=== PATIENT | female | born 1990 | race Caucasian/White ===

== ENCOUNTER 2020-09-04 11:18 | Inpatient (IN) | payer OTHER, SELFPAY ==
[~2020-09-04] VITALS: Ht 165.1 cm; Wt 79.4 kg
[2020-09-04] MEDS ORDERED: CITRIC ACID/SODIUM CITRATE 30 ML UDC PO ONE (11:35)
[2020-09-04] MEDS ORDERED: METOCLOPRAMIDE 10 MG/2 ML INJ VIAL IVP ONE (11:35)
[2020-09-04 12:19] LABS: BASOPHILS # (AUTO) 0.1 K/uL (0.00-0.22); BASOPHILS % (AUTO) 0.5 % (0.0-2.0); EOSINOPHILS # (AUTO) 0.2 K/uL (0-0.4); EOSINOPHILS % (AUTO) 1.3 % (0.0-4.0); HEMATOCRIT 34.4 % (36-48); HEMOGLOBIN 11.4 g/dL (12.0-16.0); LYMPHOCYTES # (AUTO) 1.7 K/uL (2.5-16.5); LYMPHOCYTES % (AUTO) 12.5 % (20.5-51.1); MEAN CORPUSCULAR HEMOGLOBIN 29 pg (27-31); MEAN CORPUSCULAR HGB CONC 33 g/dL (33-37); MEAN CORPUSCULAR VOLUME 88.1 fL (80-94); MONOCYTES # (AUTO) 1.1 K/uL (0.8-1.0); NEUTROPHILS # (AUTO) 10.3 K/uL (1.8-7.7); NEUTROPHILS % (AUTO) 77.7 % (42.2-75.2); PLATELET COUNT (AUTO) 318 K/uL (140-450); RED CELL DISTRIBUTION WIDTH 13.6 % (11.6-13.7); WHITE BLOOD COUNT (AUTO) 13.3 K/uL (4.8-10.8)
[2020-09-04 12:28] LABS: APPEARANCE,URINE CLOUDY (CLEAR); BILIRUBIN,URINE NEGATIVE (NEGATIVE); BLOOD, URINE NEGATIVE (NEGATIVE); COLOR,URINE YELLOW (YELLOW); LEUKOCYTE ESTERASE ,URINE 2+ (NEGATIVE); NITRITE, URINE NEGATIVE (NEGATIVE); UGLUCOSE NEGATIVE (NEGATIVE)
[2020-09-04 12:32] LABS: PROTHROMBIN TIME 9.3 secs (10.8-13.4)
[2020-09-04 13:13] LABS: ALBUMIN 2.6 g/dL (3.4-5.0); ANION GAP 14.8 (8-16); CARBON DIOXIDE 21.2 mmol/L (21-32); CREATININE 0.5 mg/dL (0.6-1.3); TOTAL BILIRUBIN 0.2 mg/dL (0.0-1.0)
[2020-09-04 13:22] LABS: RBC,URINE 0-5 /HPF (0-5); WBC,URINE 16-25 (MOD) /HPF (0-5)
[2020-09-04] MEDS: LACTATED RINGERS 1,000 ML IV SCH ×2 (13:30→17:20)
[2020-09-04 14:15] VITALS: BP 131/91
[2020-09-04 20:48] LABS: URINE TOTAL PROTEIN 36.1 mg/dL (0-12)
[2020-09-05] MEDS: LACTATED RINGERS 1,000 ML IV SCH (02:15)
[2020-09-05] MEDS ORDERED: METHYLERGONOVINE 0.2 MG/ML AMP IM PRN ×2 (03:30→06:45)
[2020-09-05] MEDS ORDERED: bisacodyL 5 MG TABEC PO PRN (03:30)
[2020-09-05] MEDS ORDERED: KETOROLAC 30 MG/ML VIAL IVP PRN ×2 (03:30→06:15)
[2020-09-05] MEDS ORDERED: oxyCODONE/APAP 5/325 MG 1 TAB TAB PO PRN ×2 (03:30→06:45)
[2020-09-05] MEDS ORDERED: MEASLES, MUMPS, AND RUBELLA 1 VIAL SQVAC PRN ×2 (03:30→06:45)
[2020-09-05] MEDS ORDERED: ceFAZolin 1,000 MG VIAL ONE ×2 (04:25→05:28)
[2020-09-05] MEDS ORDERED: ONDANSETRON 4 MG/2 ML VIAL ONE ×2 (05:28→06:45)
[2020-09-05] MEDS ORDERED: OXYTOCIN 10 UNITS/ML VIAL ONE (05:28)
[2020-09-05] MEDS ORDERED: MORPHINE PRES FREE 10 MG/10 ML AMP IV ONE (05:31)
[2020-09-05] MEDS ORDERED: diphenhydrAMINE 50 MG/ML VIAL ONE (05:47)
[2020-09-05] MEDS ORDERED: OXYTOCIN 20 UNITS/LR PREMIX 1,000 ML IV ONE (05:47)
[2020-09-05] MEDS ORDERED: diphenhydrAMINE 50 MG/ML VIAL IVP PRN (06:15)
[2020-09-05] MEDS ORDERED: NALOXONE 0.4 MG/ML VIAL IVP PRN ×2 (06:15)
[2020-09-05] MEDS ORDERED: OXYTOCIN 20 UNITS in LACTATED RINGERS 1,000 ML IV SCH (06:15)
[2020-09-05] MEDS ORDERED: ONDANSETRON 4 MG/2 ML VIAL IVP PRN (06:15)
[2020-09-05] MEDS ORDERED: DEXAMETHASONE 4 MG/ML VIAL ONE (06:45)
[2020-09-05] MEDS ORDERED: KETOROLAC 30 MG/ML VIAL ONE (06:45)
[2020-09-05] MEDS ORDERED: PROPOFOL 200 MG/20 ML VIAL IV ONE (06:45)
[2020-09-05] MEDS ORDERED: SEVOFLURANE 250 ML BTL INH ONE (06:45)
--- NOTE | 2020-09-05 08:18 | NUR ---
PATIENT HAS BEEN SCREENED AND CATEGORIZED LOW NUTRITION RISK. PATIENT WILL BE SEEN WITHIN 7 DAYS OF ADMISSION. 09/10/[address]
[2020-09-05 08:55] LABS: BARBITURATE, URINE NEGATIVE ng/ml (NEG <=200); BENZODIAZEPINE, URINE NEGATIVE ng/mL (NEG <=200); CANNABINOID, URINE NEGATIVE ng/mL (NEG <=50); COCAINE, URINE NEGATIVE ng/mL (NEG <=300); OPIATE, URINE NEGATIVE ng/mL (NEG <=2000); PHENCYCLIDINE SCREEN,URINE NEGATIVE ng/mL (NEG <=25)
[2020-09-05] MEDS: OXYTOCIN 20 UNITS in LACTATED RINGERS 1,000 ML IV SCH (18:00)
[2020-09-05] MEDS ORDERED: PROMETHAZINE 25 MG/ML VIAL IVP PRN (18:45)
[2020-09-06] MEDS ORDERED: OXYTOCIN 20 UNITS/LR PREMIX 1,000 ML IV ONE (01:36)
[2020-09-06] MEDS: OXYTOCIN 20 UNITS in LACTATED RINGERS 1,000 ML IV SCH (01:54)
[2020-09-06 05:43] LABS: BASOPHILS # (AUTO) 0.1 K/uL (0.00-0.22); BASOPHILS % (AUTO) 0.4 % (0.0-2.0); EOSINOPHILS # (AUTO) 0.1 K/uL (0-0.4); EOSINOPHILS % (AUTO) 0.8 % (0.0-4.0); HEMATOCRIT 32.3 % (36-48); HEMOGLOBIN 10.8 g/dL (12.0-16.0); LYMPHOCYTES # (AUTO) 1.4 K/uL (2.5-16.5); LYMPHOCYTES % (AUTO) 9.2 % (20.5-51.1); MEAN CORPUSCULAR HEMOGLOBIN 29 pg (27-31); MEAN CORPUSCULAR HGB CONC 33 g/dL (33-37); MEAN CORPUSCULAR VOLUME 87.7 fL (80-94); MONOCYTES # (AUTO) 1.1 K/uL (0.8-1.0); MONOCYTES % (AUTO) 7.1 % (1.7-9.3); NEUTROPHILS # (AUTO) 12.3 K/uL (1.8-7.7); NEUTROPHILS % (AUTO) 82.5 % (42.2-75.2); PLATELET COUNT (AUTO) 270 K/uL (140-450); RED BLOOD CELL COUNT(AUTO) 3.69 MIL/uL (4.20-5.40); RED CELL DISTRIBUTION WIDTH 13.4 % (11.6-13.7)
[2020-09-06] MEDS ORDERED: oxyCODONE/APAP 5/325 MG 1 TAB TAB PO PRN (06:15)
[2020-09-06] MEDS: bisacodyL 10 MG SUPP RC SCH (09:27)
[2020-09-06] MEDS: SIMETHICONE 80 MG TAB.CHEW PO PRN ×2 (09:27→12:50)
[2020-09-06] MEDS: IBUPROFEN 600 MG TAB PO SCH ×2 (12:49→18:35)
[2020-09-06] MEDS: BENZONATATE 100 MG CAPLF PO SCH ×2 (12:49→19:55)
[2020-09-07] MEDS: IBUPROFEN 600 MG TAB PO SCH ×2 (00:07→06:08)
[2020-09-07] MEDS: bisacodyL 10 MG SUPP RC SCH (09:00)
[2020-09-07] MEDS: BENZONATATE 100 MG CAPLF PO SCH (09:19)
== END 2020-09-07 12:30 | disposition home or self-care (01) | DRG 540 ==
LOC: MFCC 11:18
PROVIDERS: ADMIT Obstetrics & Gynecology; ATTEND Obstetrics & Gynecology
PROC: 3E0134Z Introduction of Serum, Toxoid and Vaccine into Subcutaneous Tissue, Percutaneous Approach (ICD-10-PCS; 2020-09-05)
PROC: 3E0234Z Introduction of Serum, Toxoid and Vaccine into Muscle, Percutaneous Approach (ICD-10-PCS; 2020-09-05)
PROC: 10D00Z1 Extraction of Products of Conception, Low, Open Approach (ICD-10-PCS; principal; 2020-09-05 05:30)
DX: O14.94 Unspecified pre-eclampsia, complicating childbirth (principal); O34.211 Maternal care for low transverse scar from previous cesarean delivery; Z20.822 Contact with and (suspected) exposure to COVID-19; Z37.0 Single live birth; Z3A.38 38 weeks gestation of pregnancy; Z23 Encounter for immunization
CPT/HCPCS: 36415; 76805; 80053; 80305; 81001; 82570; 84550; 85025; 85384; 85610; 85730; 86592; 86886; 86900; 86901; 87086; 96360; 96361; J0690; J1100; J1200; J1885; J2270; J2405; J2590; J2704; J7120

== ENCOUNTER 2022-11-13 09:06 | Observation (INO) | payer OTHER ==
[~2022-11-13] VITALS: Ht 165.1 cm; Wt 83.9 kg
[~2022-11-13 09:06] MED LIST: PREN-543 PO
[2022-11-13 09:41] VITALS: BP 121/71
[2022-11-13] MEDS ORDERED: BETAMETH ACET/BETAMETH NA PH 30 MG/5 ML VIAL IM ONE ×2 (10:00→10:12)
[2022-11-13] MEDS ORDERED: BETAMETH ACET/BETAMETH NA PH 30 MG/5 ML VIAL IM SCH (10:20)
== END 2022-11-13 10:41 | disposition home or self-care (01) ==
LOC: MLD 09:06
PROVIDERS: ADMIT Obstetrics & Gynecology; ATTEND Obstetrics & Gynecology
DX: O36.8130 Decreased fetal movements, third trimester, not applicable or unspecified (principal); Z3A.36 36 weeks gestation of pregnancy
CPT/HCPCS: 59025; 96372; G0378; J0702

== ENCOUNTER 2022-11-14 09:08 | Observation (INO) | payer OTHER ==
[~2022-11-14] VITALS: Ht 162.6 cm; Wt 83.9 kg
[2022-11-14] MEDS ORDERED: BETAMETH ACET/BETAMETH NA PH 30 MG/5 ML VIAL IM SCH (09:34)
[2022-11-14 09:46] VITALS: BP 132/82
== END 2022-11-14 10:20 | disposition home or self-care (01) ==
LOC: MLD 09:08
PROVIDERS: ADMIT Obstetrics & Gynecology; ATTEND Obstetrics & Gynecology
DX: O36.8130 Decreased fetal movements, third trimester, not applicable or unspecified (principal); Z3A.36 36 weeks gestation of pregnancy
CPT/HCPCS: 59025; 81000; 96372; G0378; G0379; J0702

== ENCOUNTER 2022-11-22 00:09 | Observation (INO) | payer OTHER ==
[~2022-11-22] VITALS: Ht 162.6 cm; Wt 83.5 kg
[2022-11-22 00:10] VITALS: BP 120/66
[2022-11-22] MEDS ORDERED: FERR-212 PO (01:26)
[2022-11-22] MEDS ORDERED: CALCIUM (01:26)
[2022-11-22] MEDS ORDERED: PANTOPRAZOLE 40 MG TABEC PO SCH (06:10)
[2022-11-22] MEDS ORDERED: NACL 0.9% 1,000 ML IV SCH (06:10)
[2022-11-22] MEDS ORDERED: cefTRIAXone 1,000 MG VIAL ONE (07:20)
[2022-11-22] MEDS ORDERED: ACETAMINOPHEN 325 MG TAB PO PRN (08:25)
== END 2022-11-22 10:40 | disposition home or self-care (01) ==
LOC: MLD 00:09
PROVIDERS: ADMIT Obstetrics & Gynecology; ATTEND Obstetrics & Gynecology
DX: O26.893 Other specified pregnancy related conditions, third trimester (principal); R10.9 Unspecified abdominal pain; Z3A.36 36 weeks gestation of pregnancy
CPT/HCPCS: 59025; 81000; 96361; 96365; G0378; J0696

== ENCOUNTER 2022-11-23 17:12 | Inpatient (IN) | payer OTHER ==
[~2022-11-23] VITALS: Ht 165.1 cm; Wt 84.4 kg
[~2022-11-23 17:12] MED LIST changes: +CALCIUM; +FERR-212 PO
[2022-11-23] MEDS ORDERED: LACTATED RINGERS 500 ML IV SCH (17:35)
[2022-11-23] MEDS ORDERED: LACTATED RINGERS 1,000 ML IV SCH (17:35)
[2022-11-23 18:12] LABS: BASOPHILS # (AUTO) 0.1 K/uL (0.00-0.22); BASOPHILS % (AUTO) 0.5 % (0.0-2.0); EOSINOPHILS # (AUTO) 0.1 K/uL (0-0.4); EOSINOPHILS % (AUTO) 0.5 % (0.0-4.0); HEMATOCRIT 35.4 % (36-48); HEMOGLOBIN 11.8 g/dL (12.0-16.0); LYMPHOCYTES # (AUTO) 2.6 K/uL (2.5-16.5); LYMPHOCYTES % (AUTO) 18.1 % (20.5-51.1); MEAN CORPUSCULAR HEMOGLOBIN 28 pg (27-31); MEAN CORPUSCULAR HGB CONC 33 g/dL (33-37); MEAN CORPUSCULAR VOLUME 83.5 fL (80-94); MONOCYTES % (AUTO) 6.7 % (1.7-9.3); NEUTROPHILS # (AUTO) 10.8 K/uL (1.8-7.7); NEUTROPHILS % (AUTO) 74.2 % (42.2-75.2); PLATELET COUNT (AUTO) 368 K/uL (140-450); RED BLOOD CELL COUNT(AUTO) 4.24 MIL/uL (4.20-5.40); RED CELL DISTRIBUTION WIDTH 14.5 % (11.6-13.7); WHITE BLOOD COUNT (AUTO) 14.5 K/uL (4.8-10.8)
[2022-11-23 18:21] LABS: APPEARANCE,URINE CLEAR (CLEAR); BILIRUBIN,URINE NEGATIVE (NEGATIVE); BLOOD, URINE NEGATIVE (NEGATIVE); COLOR,URINE YELLOW (YELLOW); LEUKOCYTE ESTERASE ,URINE 3+ (NEGATIVE); NITRITE, URINE NEGATIVE (NEGATIVE); UGLUCOSE NEGATIVE (NEGATIVE)
[2022-11-23 18:27] LABS: PROTHROMBIN TIME 9.4 secs (10.8-13.4)
[2022-11-23 18:28] LABS: ALBUMIN 2.7 g/dL (3.4-5.0); ANION GAP 15.7 (8-16); CARBON DIOXIDE 21.1 mmol/L (21-32); CREATININE 0.5 mg/dL (0.6-1.3); POTASSIUM 3.8 mmol/L (3.5-5.1); TOTAL BILIRUBIN 0.1 mg/dL (0.0-1.0)
[2022-11-23] MEDS ORDERED: ceFAZolin 2,000 MG VIAL ONE (18:43)
[2022-11-23 18:55] LABS: RBC,URINE 0-5 /HPF (0-5)
[2022-11-23 19:02] VITALS: BP 123/76
[2022-11-23] MEDS ORDERED: MORPHINE PRES FREE 10 MG/10 ML AMP IV ONE (19:10)
[2022-11-23 19:42] LABS: BARBITURATE, URINE NEGATIVE ng/ml (NEG <=200); BENZODIAZEPINE, URINE NEGATIVE ng/mL (NEG <=200); CANNABINOID, URINE NEGATIVE ng/mL (NEG <=50); COCAINE, URINE NEGATIVE ng/mL (NEG <=300); OPIATE, URINE NEGATIVE ng/mL (NEG <=2000); PHENCYCLIDINE SCREEN,URINE NEGATIVE ng/mL (NEG <=25)
[2022-11-23] MEDS ORDERED: ONDANSETRON 4 MG/2 ML VIAL IVP PRN (22:05)
[2022-11-23] MEDS ORDERED: NALBUPHINE 10 MG/ML AMP IVP PRN (22:05)
[2022-11-23] MEDS ORDERED: diphenhydrAMINE 50 MG/ML VIAL IVP PRN (22:05)
[2022-11-23] MEDS ORDERED: NALOXONE 0.4 MG/ML VIAL IVP PRN ×3 (22:05)
[2022-11-23] MEDS ORDERED: METOCLOPRAMIDE 10 MG/2 ML INJ VIAL IVP PRN (22:10)
[2022-11-23] MEDS ORDERED: OXYTOCIN 20 UNITS/LR PREMIX 1,000 ML IV ONE (22:18)
--- NOTE | 2022-11-23 23:03 | NUR ---
NURSE CALLED FOR ASSISTANCE WITH A AT 2145. BABY GIRL DELIVERED AT 2222 MOM WAS DOING WELL.
[2022-11-24] MEDS: KETOROLAC 30 MG/ML VIAL IM/IVP SCH ×2 (06:05→13:39)
--- NOTE | 2022-11-24 08:51 | NUR ---
PATIENT HAS BEEN SCREENED AND CATEGORIZED LOW NUTRITION RISK. PATIENT WILL BE SEEN WITHIN 7 DAYS OF ADMISSION. 11/30/[address]
[2022-11-24] MEDS ORDERED: OXYTOCIN 20 UNITS/LR PREMIX 1,000 ML IV ONE (09:56)
[2022-11-24] MEDS ORDERED: bisacodyL 5 MG TABEC PO PRN (11:15)
[2022-11-24] MEDS ORDERED: OXYTOCIN 20 UNITS in LACTATED RINGERS 1,000 ML IV SCH (11:15)
[2022-11-24] MEDS ORDERED: METHYLERGONOVINE 0.2 MG/ML AMP IM PRN (11:15)
[2022-11-24] MEDS ORDERED: KETOROLAC 30 MG/ML VIAL IVP PRN (11:15)
[2022-11-24] MEDS ORDERED: MEASLES, MUMPS, AND RUBELLA 1 VIAL SQVAC ONE (11:15)
[2022-11-24 12:00] LABS: BASOPHILS # (AUTO) 0.1 K/uL (0.00-0.22); BASOPHILS % (AUTO) 0.6 % (0.0-2.0); EOSINOPHILS % (AUTO) 0.3 % (0.0-4.0); HEMATOCRIT 31.9 % (36-48); HEMOGLOBIN 10.6 g/dL (12.0-16.0); LYMPHOCYTES # (AUTO) 1.4 K/uL (2.5-16.5); LYMPHOCYTES % (AUTO) 9.2 % (20.5-51.1); MEAN CORPUSCULAR HEMOGLOBIN 28 pg (27-31); MEAN CORPUSCULAR HGB CONC 33 g/dL (33-37); MEAN CORPUSCULAR VOLUME 84.2 fL (80-94); MONOCYTES % (AUTO) 6.4 % (1.7-9.3); NEUTROPHILS # (AUTO) 12.9 K/uL (1.8-7.7); NEUTROPHILS % (AUTO) 83.5 % (42.2-75.2); PLATELET COUNT (AUTO) 288 K/uL (140-450); RED BLOOD CELL COUNT(AUTO) 3.79 MIL/uL (4.20-5.40); RED CELL DISTRIBUTION WIDTH 14.7 % (11.6-13.7); WHITE BLOOD COUNT (AUTO) 15.5 K/uL (4.8-10.8)
[2022-11-24] MEDS: oxyCODONE/APAP 5/325 MG 1 TAB TAB PO PRN (18:24)
[2022-11-24] MEDS: SIMETHICONE 80 MG TAB.CHEW PO PRN (20:58)
[2022-11-25] MEDS: oxyCODONE/APAP 5/325 MG 1 TAB TAB PO PRN ×3 (00:34→14:02)
[2022-11-25] MEDS ORDERED: CAMERA MC ONE (02:57)
[2022-11-25] MEDS: IBUPROFEN 600 MG TAB PO PRN ×2 (04:14→10:58)
[2022-11-25] MEDS: SIMETHICONE 80 MG TAB.CHEW PO PRN (07:36)
--- NOTE | 2022-11-26 13:45 | NUR ---
Mechanic Insulator: financial services assistant: Attempted to see patient at bedside, however BIN Wilde advised me that the consult was not necessary as the patient had history of one time. At the time of my presence on the unit, the patient was preparing for discharge. She has strong familial support. Per nursing, she is attentive to the baby and her needs.
== END 2022-11-25 14:55 | disposition home or self-care (01) | DRG 539 ==
LOC: MLD 17:12 → MFCC 11-24 00:54
PROVIDERS: ADMIT Obstetrics & Gynecology; ATTEND Obstetrics & Gynecology
PROC: 0UB60ZZ Excision of Left Fallopian Tube, Open Approach (ICD-10-PCS; 2022-11-23)
PROC: 10D00Z1 Extraction of Products of Conception, Low, Open Approach (ICD-10-PCS; principal; 2022-11-23 19:00)
DX: O34.211 Maternal care for low transverse scar from previous cesarean delivery (principal); O14.14 Severe pre-eclampsia complicating childbirth; N73.6 Female pelvic peritoneal adhesions (postinfective); O99.892 Other specified diseases and conditions complicating childbirth; Z20.822 Contact with and (suspected) exposure to COVID-19; Z37.0 Single live birth; Z3A.36 36 weeks gestation of pregnancy; Z30.2 Encounter for sterilization
CPT/HCPCS: 36415; 80053; 80305; 81001; 85025; 85610; 85730; 86592; 86886; 86900; 86901; 87086; 88302; J1200; J1885; J2270; J2590; J7120